=== PATIENT | female | born 1940 | race Caucasian/White ===

== ENCOUNTER 2018-09-19 15:51 | Outpatient (CLI) | payer MEDICARE, SELFPAY ==
[2018-09-19 17:15] LABS: ALT 27 U/L (12-78); AST 20 U/L (15-37); Albumin 3.6 g/dL (3.4-5.0); Alkaline Phosphatase 70 U/L (46-116); BUN 23 mg/dL (7-18); Bilirubin, Total 0.2 mg/dL (0.2-1.0); CREATININE 0.82 mg/dL (0.55-1.02); Calcium 9.5 mg/dL (8.5-10.1); Chloride 100 mmol/L (98-107); Glucose 104 mg/dL (70-100); Potassium 4.1 mmol/L (3.5-5.1); Sodium 138 mmol/L (136-145); Total Protein 7.3 g/dL (6.4-8.2)
== END 2018-09-19 16:11 ==
DX: Z01.818 Encounter for other preprocedural examination (principal); R03.0 Elevated blood-pressure reading, without diagnosis of hypertension
CPT/HCPCS: 36415; 80053

== ENCOUNTER 2018-09-28 07:38 | Day surgery (SDC) | payer MEDICARE, SELFPAY ==
--- NOTE | 2018-09-27 20:14 | POEE_ITS ---
History of Present Illness Chief Complaint: Progressive decreased vision, left eye Narrative: Patient is a 78-year-old lady with history of progressive decreased vision in both eyes at both distance and near. She particularly notes difficulty driving and reading. She has a history of macular degeneration OU. On examination she was noted to have dense bilateral nuclear cataracts with visual acuity of 20/50 in each eye. The option of cataract surgery was offered to the patient and she felt she was symptomatic enough that she wished to proceed. NOTE: The Chief Complaint, HPI, Past Medical History, Past Surgical History, Family History, Social History, Medications, and complete Ophthalmic Exam with detailed Assessment and Plan have already been documented in the patient's outpatient ophthalmic record and are not covered again in detail here. [facility] Medical History Leg pain, bilateral (Chronic) Back stiffness (Chronic) Pelvic prolapse (Resolved 02/25/14) Hiatal hernia (Chronic 09/18/14) Family history of breast cancer (Acute) Elevated blood pressure reading (Chronic 02/27/15) Hx of difficult intubation (Acute) Cataract (Chronic) Surgical History Hysterectomy, Laproscopic (~1985) Repair, Posterior (06/04/15) Social History Smoking/Tobacco Use Status: Never Alcohol Intake: never Drug use: Never Substance use type: does not use Household members: spouse Pets and animals: No Duration: 45-60 minutes/day Frequency: 5-6 times per week Jordyn/Muslim: Pentecostalism Special jordyn needs: No Do you feel safe at home: Yes Do you feel safe in your relationship?: Yes Meds Home Medications Medication Instructions Recorded Confirmed Type calcium carb-mag oxide-zinc ox 2 ea PO DAILY 01/19/13 09/25/18 History cholecalciferol (vitamin D3) 1,000 units PO DAILY 11/24/13 09/25/18 History cyclosporine [Restasis] 1 drp OPHTHALMIC BID #1 drp 03/28/17 09/25/18 History apple cider vinegar 500 mg tablet 500 mg PO DAILY tab 04/03/18 09/25/18 History ascorbate calcium 500 mg tablet 500 mg PO DAILY 04/03/18 09/25/18 History beta carotene 25,000 unit capsule 25,000 unit PO DAILY 04/03/18 09/25/18 History bilberry fruit extract 160 mg 160 mg PO DAILY cap 04/03/18 09/25/18 History capsule biotin 5 mg capsule 5 mg PO DAILY 04/03/18 09/25/18 History horse chestnut 300 mg capsule 400 mg PO DAILY cap 04/03/18 09/25/18 History vitamin A-vitamin C-vit E-min 1 tab PO DAILY 04/03/18 09/25/18 History tablet vitamin B complex tablet 1 tab PO DAILY 04/03/18 09/25/18 History Allergies Allergy/AdvReac Type Severity Reaction Status Date / Time soy Allergy Mild RASH Verified 09/25/18 13:23 AROUND NOSE lactase [Lactase] AdvReac Mild EYES RUN Verified 09/25/18 13:23 CAT/FELINE Allergy Intermediate Uncoded 09/25/18 13:23 Insect Bites Allergy Intermediate Uncoded 09/25/18 13:23 Exam OCULAR EXAM:: Recent ocular examination is significant for visual acuity of 20/50 in each eye. Intraocular pressure 16 OD, 17 OS. Extraocular motility is normal. Slit lamp examination shows pupils dilating to 7 mm OU. Pupils equal, round, and reactive without afferent pupillary defect 3+ brunescent nuclear cataract is present each eye with rather dense clouding. Funduscopic examination shows disc cupping of 0.5 OD 0.4 OS with normal vessels. Macular pigmentary changes are present OU. Peripheral retina and vitreous is normal OU. BRIGHTNESS ACUITY TESTING (BAT):: Brightness acuity testing of the left eye office is 20/60. On the low setting is 20/60, medium setting is 20/70, high setting is 20/80. Assessment and Plan (1) Nuclear sclerotic cataract of left eye: Current visit: No Status: Acute Assessment: Visually significant cataract, left eye. Plan: Cataract extraction with intraocular lens implantation, left eye Note: NOTE:: The details of the planned surgery, including the risks, indications,limitations,expectations,outcome and possible complications were explained to the patient. The patient understands the complications including, but not limited to: infection, hemorrhage, posterior dislocation of the lens or nuclear fragments which may require the intervention of a vitreoretinal surgeon, possible loss of the eye, or from anesthetic complications. The patient has been made aware of the option of not having surgery, that vision following surgery may not be equal to that prior to surgery, and that the planned surgery may not achieve the intended results. Following this discussion, which the patient appeared to understand, the patient wishes to proceed with cataract surgery with lens implantation of the affected eye to improve and maximize vision.
--- NOTE | 2018-09-27 20:23 | W.PIPPEYE ---
History of Present Illness Chief Complaint: Progressive decreased vision, right eye Narrative: The patient is a 77-year-old gentleman with complaints of progressive decreased vision in both eyes over the past several years. He notes significant difficulty reading road signs. On examination he was noted to have bilateral nuclear and cortical cataracts with visual acuity of 20/40 in each eye. The option of cataract surgery was offered to the patient and he felt he was symptomatic enough that he wished to proceed. NOTE: The Chief Complaint, HPI, Past Medical History, Past Surgical History, Family History, Social History, Medications, and complete Ophthalmic Exam with detailed Assessment and Plan have already been documented in the patient's outpatient ophthalmic record and are not covered again in detail here. [facility] Medical History Leg pain, bilateral (Chronic) Back stiffness (Chronic) Pelvic prolapse (Resolved 02/25/14) Hiatal hernia (Chronic 09/18/14) Family history of breast cancer (Acute) Elevated blood pressure reading (Chronic 02/27/15) Hx of difficult intubation (Acute) Cataract (Chronic) Surgical History Hysterectomy, Laproscopic (~1985) Repair, Posterior (06/04/15) Social History Smoking/Tobacco Use Status: Never Alcohol Intake: never Drug use: Never Substance use type: does not use Household members: spouse Pets and animals: No Duration: 45-60 minutes/day Frequency: 5-6 times per week Jordyn/Denominational: Yazidism Special jordyn needs: No Do you feel safe at home: Yes Do you feel safe in your relationship?: Yes Meds Home Medications Medication Instructions Recorded Confirmed Type calcium carb-mag oxide-zinc ox 2 ea PO DAILY 01/19/13 09/25/18 History cholecalciferol (vitamin D3) 1,000 units PO DAILY 11/24/13 09/25/18 History cyclosporine [Restasis] 1 drp OPHTHALMIC BID #1 drp 03/28/17 09/25/18 History apple cider vinegar 500 mg tablet 500 mg PO DAILY tab 04/03/18 09/25/18 History ascorbate calcium 500 mg tablet 500 mg PO DAILY 04/03/18 09/25/18 History beta carotene 25,000 unit capsule 25,000 unit PO DAILY 04/03/18 09/25/18 History bilberry fruit extract 160 mg 160 mg PO DAILY cap 04/03/18 09/25/18 History capsule biotin 5 mg capsule 5 mg PO DAILY 04/03/18 09/25/18 History horse chestnut 300 mg capsule 400 mg PO DAILY cap 04/03/18 09/25/18 History vitamin A-vitamin C-vit E-min 1 tab PO DAILY 04/03/18 09/25/18 History tablet vitamin B complex tablet 1 tab PO DAILY 04/03/18 09/25/18 History Allergies Allergy/AdvReac Type Severity Reaction Status Date / Time soy Allergy Mild RASH Verified 09/25/18 13:23 AROUND NOSE lactase [Lactase] AdvReac Mild EYES RUN Verified 09/25/18 13:23 CAT/FELINE Allergy Intermediate Uncoded 09/25/18 13:23 Insect Bites Allergy Intermediate Uncoded 09/25/18 13:23 Exam OCULAR EXAM:: Most recent ocular examination is significant for corrected visual acuity of 20/40 in each eye. Intraocular pressure is 15 OD, 16 OS. Extraocular motility is normal. Pupils equal, round, and reactive without afferent pupillary defect slitlike examination reveals pupils dilated to 4 mm OU. 2+ nuclear with 1+ cortical cataract OU. Dilated funduscopic examination shows disc cupping of 0.45 OU with normal vessels, macula, peripheral retina and vitreous. BRIGHTNESS ACUITY TESTING (BAT):: Brightness acuity testing of the right eye office is 20/40. Low is 20/50. Medium is 20/70. On the high setting is 20/100. Assessment and Plan (1) Nuclear sclerotic cataract of right eye: Current visit: No Status: Acute Assessment: Visually significant cataract, right eye. Plan: Cataract extraction with intraocular lens implantation, right eye (2) Cortical cataract of right eye: Current visit: No Status: Acute Assessment: Visually significant cataract, right eye. Plan: Cataract extraction with intraocular lens implantation, right eye Note: NOTE:: The details of the planned surgery, including the risks, indications,limitations,expectations,outcome and possible complications were explained to the patient. The patient understands the complications including, but not limited to: infection, hemorrhage, posterior dislocation of the lens or nuclear fragments which may require the intervention of a vitreoretinal surgeon, possible loss of the eye, or from anesthetic complications. The patient has been made aware of the option of not having surgery, that vision following surgery may not be equal to that prior to surgery, and that the planned surgery may not achieve the intended results. Following this discussion, which the patient appeared to understand, the patient wishes to proceed with cataract surgery with lens implantation of the affected eye to improve and maximize vision.
--- NOTE | 2018-09-27 21:12 | W.PM.DSUDISC ---
Discharge Plan Disposition Patient Disposition: HOME Condition: Stable Discharge Details Attending Provider: Gilberto Youssef Primary Care Provider: Felicia Pizarro Home Meds and New Rx's Prescriptions: No Action ascorbate calcium 500 mg tablet 500 mg PO DAILY RF: 0 apple cider vinegar 500 mg tablet 500 mg PO DAILY RF: 0 vitamin B complex [B Complex 1] tablet 1 tab PO DAILY RF: 0 biotin 5 mg capsule 5 mg PO DAILY RF: 0 horse chestnut 300 mg capsule 400 mg PO DAILY RF: 0 vitamin A-vitamin C-vit E-min tablet 1 tab PO DAILY RF: 0 beta carotene 25,000 unit capsule 25,000 unit PO DAILY RF: 0 bilberry fruit extract 160 mg capsule 160 mg PO DAILY RF: 0 calcium carb-mag oxide-zinc ox 1 EACH tablet 2 ea PO DAILY RF: 0 Restasis 1 EACH dropperette 1 drp Ophthalmic BID Qty: 1 RF: 0 cholecalciferol (vitamin D3) 1,000 UNIT tablet 1,000 units PO DAILY RF: 0 loratadine-pseudoephedrine [Claritin-D 24 Hour] 10-240 mg Tablet Extended Release 24 Hr 1 tab PO DAILY PRNRF: 0 Discharge Instructions Stand Alone Forms: Post-op Topical Cataract, Carmen Sinha (DSU) Discharge Orders Discharge Orders: Discharge Order (Routine); Ordered 09/28/18 Ordered By: Gilberto Youssef DS: Diagnosis Discharge Diagnosis (1) Status post cataract extraction and insertion of intraocular lens of left eye: Status: Chronic (2) Cortical cataract of left eye: Status: Resolved
[2018-09-28 08:07] VITALS: BP 151/101; PULSE 77; RESP 16; TEMP 36; O2SAT 98
[2018-09-28] MEDS: Tetracaine 0.5% 4 ML BTL OS ×4 (08:18→09:00)
[2018-09-28] MEDS: Tropicam./Phenyleph. (1/2.5%) 5 ML BTL OS ×3 (08:18→08:28)
[2018-09-28] MEDS: Lidocaine 1% Pres-Free 5 ML VIAL (09:00)
[2018-09-28] MEDS: Lidocaine 2% Jelly 6 ML SYR (09:00)
[2018-09-28] MEDS: Balanced Salt Soln.-PLUS 500 ML BAG (09:06)
[2018-09-28] MEDS: Trypan Blue 0.06% 0.5 ML SYR (09:06)
[2018-09-28] MEDS: Povidone-Iodine Ophth 30 ML BTL (09:33)
--- NOTE | 2018-09-28 09:43 | W.PM.OP ---
Date of service: 09/28/18 Time of Service: 09:43 Operative Note PRE-OP DIAGNOSIS: Cataract, left eye, with poor red reflex POST-OP DIAGNOSIS: same PROCEDURE: Cataract extraction using phacoemulsification with intraocular lens implant, left eye, using capsular staining with Vision Blue SURGEON: Gilberto Youssef ANESTHESIA: MAC (with local sub-tenon's anesthetic injection) COMPLICATIONS: None Patient was transported to: same day Patient's condition: stable Implants: [employer] / [employer] Tecnis [id number] Indications: Progressive decreased vision due to cataract, left eye, with poor red reflex Procedure Description: CATARACT SURGERY OPERATIVE REPORT PREOPERATIVE DIAGNOSIS: 1. Dense nuclear cataract, left eye 2. Poor red reflex secondary to #1 POSTOPERATIVE DIAGNOSIS: Same OPERATION: 1. Cataract extraction using phacoemulsification with posterior chamber intraocular lens implant, left eye. 2. Capsular staining with Vision Blue IOL: IOL Special Agent In Charge/Model: [employer] / TASNEEM Tecnis [id number] IOL Power: + 20.0 diopters IOL Serial Number: [id number] Optic Diameter: 6.0 mm Haptic/Overall Diameter: 13.0 mm PHACO INFO: [employer]ur[employer] Vision System with OZil and Active Fluidics Cumulative Dispersed Energy (CDE): 26.30 seconds SURGEON: Gilberto Youssef MD, MARANDA ANESTHESIA: Monitored [facility] (MAC), with local sub-tenon's anesthetic infiltration COMPLICATIONS: None SPECIMENS: None INDICATIONS FOR PROCEDURE: The patient is an 78-year old lady with history of diminished visual acuity in both eyes secondary to the development of dense bilateral nuclear cataracts. The option of cataract surgery was offered to the patient and she felt she was symptomatically at that she wished to proceed. PROCEDURE: The correct surgical eye was identified and marked as the left eye and the pupil was dilated in the preoperative area using mydriatics and cycloplegics. The dilated pupil size was 6.5 mm. Oral sedation was administered in the form of an Imprimis MKO Melt (midazolam 3mg/ketamine 25mg/ondansetron 2mg). The patient was brought to the operating room where cardiopulmonary monitoring was instituted and surgical time-out was performed, confirming the correct operative eye and IOL power. Topical anesthesia was administered and ophthalmic povidone-iodine 5% was instilled into the conjunctival fornices. Lidocaine gel was applied to the cornea and the halima-ocular area was prepped with Betadine 10% solution and draped in the usual sterile fashion for intraocular surgery, including an aperture drape. A Tegaderm transparent film dressing was cut in half and used to cover the lashes and lid margins. Care was taken to sequester the lashes and lid margins under the Tegaderm dressing. A lid speculum was placed between the lids of the operative eye and the Julius-Bere operating microscope was maneuvered into position. Cami scissors were then used to make a conjunctival buttonhole approximately 6mm posterior to the limbus in the inferonasal quadrant. Blunt dissection was carried out to expose bare sclera, and a blunt-tipped sub-tenon?s anesthesia cannula was introduced and passed posteriorly along the globe where non-preserved plain lidocaine was injected into posterior sub-Tenon?s space. A sideport knife was used to make a paracentesis port at the 12:00 position. Air was injected into the anterior chamber, followed by Vision Blue, which was painted over the anterior capsule and then irrigated out using BSS. The anterior chamber was filled with Healon GV. A 2.4mm keratome knife was used to create a half-thickness groove at the limbus and then to construct a three-plane near-clear corneal tunnel extending 2.0mm into clear cornea at the 3:00 position. A flap was raised on the anterior capsule and capsulorhexis forceps were used to complete a continuous curvilinear capsulorhexis of 5.0 mm. Balanced salt solution was then used to perform cortical cleaving hydrodissection and nuclear hydrodelineation until the lens could be freely rotated within the capsular bag. The lens nucleus was then disassembled and removed within the capsular bag and iris plane using phacoemulsification. The nucleus was quite dense, and multiple chopping maneuvers were utilized. Residual cortical material was removed using the 45-degree angled silicone I/A tip with 0.3mm port. The posterior capsule was carefully polished to remove as much residual lens epithelial cells as safely possible. The capsular bag was then inflated and the anterior chamber deepened with viscoelastic. The lens implant described above was inserted into the capsular bag using the TASNEEM [place] Injector. A Kuglen hook was used to dial the IOL into position. Residual viscoelastic was then removed first from posterior to the IOL, then from the anterior chamber using the I/A handpiece. The lens implant was noted to center nicely within the capsular bag. The incisions were stromally hydrated, and the anterior chamber was reformed using BSS. Then 0.4cc of moxifloxacin 1.5mg/ml were injected into the capsular bag and anterior chamber. The incisions were checked with a Weck spear and found to be secure. Several drops of ophthalmic povidone-iodine 5% were then applied to the eye followed by two drops of Imprimis combination pred/gatifloxacin/bromfenac solution. The drapes were removed and a clear plastic protective eye shield was placed over the eye. The patient was then returned to Same Day Surgery in stable condition.
[2018-09-28 10:10] VITALS: BP 140/79; PULSE 81; RESP 16; TEMP 36.3; O2SAT 94
== END 2018-09-28 10:18 | disposition home or self-care (01) ==
LOC: SUR 07:38
PROVIDERS: Visit Provider Ophthalmology
PROC: (CPT 66982; principal; 2018-09-28 09:30)
DX: H25.12 Age-related nuclear cataract, left eye (principal); H35.89 Other specified retinal disorders
CPT/HCPCS: 66982; V2632

== ENCOUNTER 2018-10-12 07:36 | Day surgery (SDC) | payer MEDICARE, SELFPAY ==
--- NOTE | 2018-10-11 08:26 | W.PIPPEYE ---
History of Present Illness Chief Complaint: Progressive decreased vision, right eye Narrative: The patient is an 78-year old lady with history of progressive decreased vision in both eyes at both distance and near secondary to development of dense nuclear cataracts. She noted significant difficulty with reading and driving, with glare from sunlight and headlights at night. The option of cataract surgery was offered to the patient and she wished to proceed, undergoing cataract surgery in the left eye on 09/28/2018. Postoperatively she has regained uncorrected visual acuity of 20/25 in the left eye. She now presents for cataract surgery in the right eye. NOTE: The Chief Complaint, HPI, Past Medical History, Past Surgical History, Family History, Social History, Medications, and complete Ophthalmic Exam with detailed Assessment and Plan have already been documented in the patient's outpatient ophthalmic record and are not covered again in detail here. [facility] Medical History Leg pain, bilateral (Chronic) Back stiffness (Chronic) Pelvic prolapse (Resolved 02/25/14) Hiatal hernia (Chronic 09/18/14) Family history of breast cancer (Acute) Elevated blood pressure reading (Chronic 02/27/15) Hx of difficult intubation (Acute) Cataract (Chronic) Surgical History Hysterectomy, Laproscopic (~1985) Repair, Posterior (06/04/15) Social History Smoking/Tobacco Use Status: Never Alcohol Intake: never Drug use: Never Substance use type: does not use Household members: spouse Pets and animals: No Duration: 45-60 minutes/day Frequency: 5-6 times per week Jordyn/Presybeterian: Yazdanism Special jordyn needs: No Do you feel safe at home: Yes Do you feel safe in your relationship?: Yes Meds Home Medications Medication Instructions Recorded Confirmed Type calcium carb-mag oxide-zinc ox 2 ea PO DAILY 01/19/13 09/28/18 History cholecalciferol (vitamin D3) 1,000 units PO DAILY 11/24/13 09/28/18 History cyclosporine [Restasis] 1 drp OPHTHALMIC BID #1 drp 03/28/17 09/28/18 History apple cider vinegar 500 mg tablet 500 mg PO DAILY tab 04/03/18 09/28/18 History ascorbate calcium 500 mg tablet 500 mg PO DAILY 04/03/18 09/25/18 History beta carotene 25,000 unit capsule 25,000 unit PO DAILY 04/03/18 09/25/18 History bilberry fruit extract 160 mg 160 mg PO DAILY cap 04/03/18 09/28/18 History capsule biotin 5 mg capsule 5 mg PO DAILY 04/03/18 09/28/18 History horse chestnut 300 mg capsule 400 mg PO DAILY cap 04/03/18 09/25/18 History vitamin A-vitamin C-vit E-min 1 tab PO DAILY 04/03/18 09/25/18 History tablet vitamin B complex tablet 1 tab PO DAILY 04/03/18 09/25/18 History loratadine-pseudoephedrine 1 tab PO DAILY PRN 09/28/18 09/28/18 History [Claritin-D 24 Hour] Allergies Allergy/AdvReac Type Severity Reaction Status Date / Time soy Allergy Mild RASH Verified 09/25/18 13:23 AROUND NOSE lactase [Lactase] AdvReac Mild EYES RUN Verified 09/25/18 13:23 CAT/FELINE Allergy Intermediate Uncoded 09/25/18 13:23 Insect Bites Allergy Intermediate Uncoded 09/25/18 13:23 Exam OCULAR EXAM:: Most recent ocular examination is significant for corrected visual acuity of 20/40 OD, uncorrected vision of 20/25 OS. Intraocular pressure is 16 OU. Extraocular motility is normal. Normal pupils slit-lamp examination is significant for pupils dilating to 7 mm OU. 3+ nuclear cataract OD. Well-positioned PCIOL OS with clear posterior capsule. Dilated funduscopic examination reveals disc cupping of 0.5 OD 0.4 OS with good color. The retinal vasculature is normal. There are some mild pigmentary changes in both maculas. Peripheral retina and vitreous is normal OU. BRIGHTNESS ACUITY TESTING (BAT):: Brightness acuity testing of the right eye office is 20/50. Low is 20/50. Medium is 20/60. High is 20/80. Assessment and Plan (1) Cortical cataract of right eye: Current visit: No Status: Acute Assessment: Visually significant cataract, right eye. Plan: Cataract extraction with intraocular lens implantation, right eye (2) Nuclear sclerotic cataract of right eye: Current visit: No Status: Acute Assessment: Visually significant cataract, right eye. Plan: Cataract extraction with intraocular lens implantation, right eye Note: NOTE:: The details of the planned surgery, including the risks, indications,limitations,expectations,outcome and possible complications were explained to the patient. The patient understands the complications including, but not limited to: infection, hemorrhage, posterior dislocation of the lens or nuclear fragments which may require the intervention of a vitreoretinal surgeon, possible loss of the eye, or from anesthetic complications. The patient has been made aware of the option of not having surgery, that vision following surgery may not be equal to that prior to surgery, and that the planned surgery may not achieve the intended results. Following this discussion, which the patient appeared to understand, the patient wishes to proceed with cataract surgery with lens implantation of the affected eye to improve and maximize vision.
--- NOTE | 2018-10-12 07:19 | W.PM.DSUDISC ---
Discharge Plan Disposition Patient Disposition: HOME Condition: Stable Discharge Details Attending Provider: Gilberto Youssef Primary Care Provider: Felicia Pizarro Home Meds and New Rx's Prescriptions: No Action ascorbate calcium 500 mg tablet 500 mg PO DAILY RF: 0 apple cider vinegar 500 mg tablet 500 mg PO DAILY RF: 0 vitamin B complex [B Complex 1] tablet 1 tab PO DAILY RF: 0 biotin 5 mg capsule 5 mg PO DAILY RF: 0 horse chestnut 300 mg capsule 400 mg PO DAILY RF: 0 vitamin A-vitamin C-vit E-min tablet 1 tab PO DAILY RF: 0 beta carotene 25,000 unit capsule 25,000 unit PO DAILY RF: 0 bilberry fruit extract 160 mg capsule 160 mg PO DAILY RF: 0 calcium carb-mag oxide-zinc ox 1 EACH tablet 2 ea PO DAILY RF: 0 Restasis 1 EACH dropperette 1 drp Ophthalmic BID Qty: 1 RF: 0 cholecalciferol (vitamin D3) 1,000 UNIT tablet 1,000 units PO DAILY RF: 0 loratadine-pseudoephedrine [Claritin-D 24 Hour] 10-240 mg Tablet Extended Release 24 Hr 1 tab PO DAILY PRNRF: 0 Discharge Instructions Stand Alone Forms: Post-op Topical Cataract, Carmen Tatumey (DSU) Discharge Orders Discharge Orders: Discharge Order (Routine); Ordered 10/12/18 Ordered By: Gilberto Youssef DS: Diagnosis Discharge Diagnosis (1) Cortical cataract of right eye: Status: Resolved (2) Nuclear sclerotic cataract of right eye: Status: Resolved (3) Status post cataract extraction and insertion of intraocular lens of right eye: Status: Chronic
[2018-10-12] MEDS: Tetracaine 0.5% 4 ML BTL OD ×4 (08:00→09:06)
[2018-10-12] MEDS: Tropicam./Phenyleph. (1/2.5%) 5 ML BTL OD ×2 (08:01→08:08)
[2018-10-12 08:03] VITALS: BP 144/81; PULSE 76; RESP 18; TEMP 36.2; O2SAT 96
[2018-10-12] MEDS: Lidocaine 2% Jelly 6 ML SYR (09:06)
[2018-10-12] MEDS: Lidocaine 1% Pres-Free 5 ML VIAL (09:06)
[2018-10-12] MEDS: Duovisc Viscoelastic System EACH 1 EACH (09:06)
[2018-10-12] MEDS: Povidone-Iodine Ophth 30 ML BTL (09:06)
[2018-10-12] MEDS: Balanced Salt Soln.-PLUS 500 ML BAG (09:06)
[2018-10-12] MEDS: Trypan Blue 0.06% 0.5 ML SYR (09:06)
--- NOTE | 2018-10-12 09:43 | W.PM.OP ---
Date of service: 10/12/18 Time of Service: 09:44 Operative Note PRE-OP DIAGNOSIS: Cataract, right eye, with poor red reflex PROCEDURE: Cataract extraction using phacoemulsification with intraocular lens implantation, right eye, using capsular staining with Vision Blue SURGEON: Gilberto Youssef ANESTHESIA: MAC (with local sub-tenon's anesthetic injection) PATHOLOGY: none sent COMPLICATIONS: None Patient was transported to: same day Patient's condition: stable Implants: [employer] / [employer] Tecnis [id number] Indications: Progressive visual loss due to cataract, right eye Procedure Description: CATARACT SURGERY OPERATIVE REPORT PREOPERATIVE DIAGNOSIS: 1. Dense nuclear cataract, right eye 2. Poor red reflex secondary to #1 POSTOPERATIVE DIAGNOSIS: Same OPERATION: 1. Cataract extraction using phacoemulsification with posterior chamber intraocular lens implant, right eye. 2. 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 She has already undergone cataract surgery in her left eye and is doing well postoperatively with uncorrected vision of 20/25. She now presents for cataract surgery of the right eye. PROCEDURE: The correct surgical eye was identified and marked as the right eye and the pupil was dilated in the preoperative area using mydriatics and cycloplegics. The dilated pupil size was 6.5 mm. Oral sedation was administered in the form of an Imprimis MKO Melt (midazolam 3mg/ketamine 25mg/ondansetron 2mg). The patient was brought to the operating room where cardiopulmonary monitoring was instituted and surgical time-out was performed, confirming the correct operative eye and IOL power. Topical anesthesia was administered and ophthalmic povidone-iodine 5% was instilled into the conjunctival fornices. Lidocaine gel was applied to the cornea and the halima-ocular area was prepped with Betadine 10% solution and draped in the usual sterile fashion for intraocular surgery, including an aperture drape. A Tegaderm transparent film dressing was cut in half and used to cover the lashes and lid margins. Care was taken to sequester the lashes and lid margins under the Tegaderm dressing. A lid speculum was placed between the lids of the operative eye and the Julius-Bere operating microscope was maneuvered into position. Cami scissors were then used to make a conjunctival buttonhole approximately 6mm posterior to the limbus in the inferonasal quadrant. Blunt dissection was carried out to expose bare sclera, and a blunt-tipped sub-tenon?s anesthesia cannula was introduced and passed posteriorly along the globe where non-preserved plain lidocaine was injected into posterior sub-Tenon?s space. A sideport knife was used to make a paracentesis port at the 7:00 position. Air was injected into the anterior chamber, followed by Vision Blue, which was painted over the anterior capsule and then irrigated out with BSS. The anterior chamber was filled with Viscoat. A 2.4mm keratome knife was used to create a half-thickness groove at the limbus and then to construct a three-plane near-clear corneal tunnel extending 2.0mm into clear cornea at the 10:00 position. A flap was raised on the anterior capsule and capsulorhexis forceps were used to complete a continuous curvilinear capsulorhexis of 5.5 mm. Balanced salt solution was then used to perform cortical cleaving hydrodissection and nuclear hydrodelineation until the lens could be freely rotated within the capsular bag. The lens nucleus was then disassembled and removed within the capsular bag and iris plane using phacoemulsification. Residual cortical material was removed using the I/A handpiece. The posterior capsule was carefully polished to remove as much residual lens epithelial cells as safely possible. The capsular bag was then inflated and the anterior chamber deepened with Provisc. The lens implant described above was inserted into the capsular bag using the TASNEEM [place] Injector. A Kuglen hook was used to dial the IOL into position. Residual viscoelastic was then removed first from posterior to the IOL, then from the anterior chamber using the I/A handpiece. The lens implant was noted to center nicely within the capsular bag. The incisions were stromally hydrated, and the anterior chamber was reformed using BSS. Then 0.4cc of moxifloxacin 1.5mg/ml were injected into the capsular bag and anterior chamber. The incisions were checked with a Weck spear and found to be secure. Several drops of ophthalmic povidone-iodine 5% were then applied to the eye followed by two drops of Imprimis combination prednisolone/gatifloxacin/bromfenac solution. The drapes were removed and a clear plastic protective eye shield was placed over the eye. The patient was then returned to Same Day Surgery in stable condition.
--- NOTE | 2018-10-12 09:48 | ROE_ITS ---
Date of service: 10/12/18 Time of Service: 09:44 Operative Note PRE-OP DIAGNOSIS: Cataract, right eye, with poor red reflex PROCEDURE: Cataract extraction using phacoemulsification with intraocular lens implantation, right eye, using capsular staining with Vision Blue SURGEON: Gilberto Youssef ANESTHESIA: MAC (with local sub-tenon's anesthetic injection) PATHOLOGY: none sent COMPLICATIONS: None Patient was transported to: same day Patient's condition: stable Implants: [employer] / [employer] Tecnis [id number] Indications: Progressive visual loss due to cataract, right eye Procedure Description: CATARACT SURGERY OPERATIVE REPORT PREOPERATIVE DIAGNOSIS: 1. Dense nuclear cataract, right eye 2. Poor red reflex secondary to #1 POSTOPERATIVE DIAGNOSIS: Same OPERATION: 1. Cataract extraction using phacoemulsification with posterior chamber intraocular lens implant, right eye. 2. 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 She has already undergone cataract surgery in her left eye and is doing well postoperatively with uncorrected vision of 20/25. She now presents for cataract surgery of the right eye. PROCEDURE: The correct surgical eye was identified and marked as the right eye and the pupil was dilated in the preoperative area using mydriatics and cycloplegics. The dilated pupil size was 6.5 mm. Oral sedation was administered in the form of an Imprimis MKO Melt (midazolam 3mg/ketamine 25mg/ondansetron 2mg). The patient was brought to the operating room where cardiopulmonary monitoring was instituted and surgical time-out was performed, confirming the correct operative eye and IOL power. Topical anesthesia was administered and ophthalmic povidone-iodine 5% was instilled into the conjunctival fornices. Lidocaine gel was applied to the cornea and the halima-ocular area was prepped with Betadine 10% solution and draped in the usual sterile fashion for intraocular surgery, including an aperture drape. A Tegaderm transparent film dressing was cut in half and used to cover the lashes and lid margins. Care was taken to sequester the lashes and lid margins under the Tegaderm dressing. A lid speculum was placed between the lids of the operative eye and the Julius-Bere operating microscope was maneuvered into position. Cami scissors were then used to make a conjunctival buttonhole approximately 6mm posterior to the limbus in the inferonasal quadrant. Blunt dissection was carried out to expose bare sclera, and a blunt-tipped sub-tenon?s anesthesia cannula was introduced and passed posteriorly along the globe where non- preserved plain lidocaine was injected into posterior sub-Tenon?s space. A sideport knife was used to make a paracentesis port at the 7:00 position. Air was injected into the anterior chamber, followed by Vision Blue, which was painted over the anterior capsule and then irrigated out with BSS. The anterior chamber was filled with Viscoat. A 2.4mm keratome knife was used to create a half-thickness groove at the limbus and then to construct a three-plane near- clear corneal tunnel extending 2.0mm into clear cornea at the 10:00 position. A flap was raised on the anterior capsule and capsulorhexis forceps were used to complete a continuous curvilinear capsulorhexis of 5.5 mm. Balanced salt solution was then used to perform cortical cleaving hydrodissection and nuclear hydrodelineation until the lens could be freely rotated within the capsular bag. The lens nucleus was then disassembled and removed within the capsular bag and iris plane using phacoemulsification. Residual cortical material was removed using the I/A handpiece. The posterior capsule was carefully polished to remove as much residual lens epithelial cells as safely possible. The capsular bag was then inflated and the anterior chamber deepened with Provisc. The lens implant described above was inserted into the capsular bag using the TASNEEM [place] Injector. A Kuglen hook was used to dial the IOL into position. Residual viscoelastic was then removed first from posterior to the IOL, then from the anterior chamber using the I/A handpiece. The lens implant was noted to center nicely within the capsular bag. The incisions were stromally hydrated, and the anterior chamber was reformed using BSS. Then 0.4cc of moxifloxacin 1.5mg/ml were injected into the capsular bag and anterior chamber. The incisions were checked with a Weck spear and found to be secure. Several drops of ophthalmic povidone-iodine 5% were then applied to the eye followed by two drops of Imprimis combination prednisolone/gatifloxacin/bromfenac solution. The drapes were removed and a clear plastic protective eye shield was placed over the eye. The patient was then returned to Same Day Surgery in stable condition.
[2018-10-12 10:02] VITALS: BP 137/79; PULSE 80; RESP 18; TEMP 36.6; O2SAT 94
== END 2018-10-12 10:05 | disposition home or self-care (01) ==
LOC: SUR 07:36
PROVIDERS: Visit Provider Ophthalmology
PROC: (CPT 66982; principal; 2018-10-12 09:30)
DX: H25.11 Age-related nuclear cataract, right eye (principal); H35.89 Other specified retinal disorders; Z98.42 Cataract extraction status, left eye; Z96.1 Presence of intraocular lens
CPT/HCPCS: 66982; V2632